=== PATIENT | female | born 1960 | race Caucasian/White ===

== ENCOUNTER 2019-06-17 15:22 | Emergency (ER) | payer SELFPAY ==
[~2019-06-17] VITALS: Ht 162.6 cm; Wt 80.3 kg
[2019-06-17] MEDS ORDERED: MYRBETRIQ25 MG PO (15:32)
[2019-06-17] MEDS ORDERED: CITA20 PO (15:32)
[2019-06-17] MEDS ORDERED: BENZ100A PO (17:05)
[2019-06-17] MEDS ORDERED: Zithromax250 MG PO (17:05)
[2019-06-17] MEDS ORDERED: Prednisone20 MG PO (17:05)
[2019-06-17] MEDS ORDERED: ALBU90OI INH (17:05)
== END 2019-06-17 17:20 | disposition home or self-care (01) ==
LOC: ER 15:22
DX: J18.9 Pneumonia, unspecified organism (principal); Z87.891 Personal history of nicotine dependence
CPT/HCPCS: 71046; 99283-25